=== PATIENT | female | born 1970 | race African-American/Black ===

== ENCOUNTER 2019-10-29 13:19 | Inpatient (IN) | payer BC ==
[~2019-10-29] VITALS: Ht 172.7 cm; Wt 100.9 kg
[2019-10-29] MEDS ORDERED: IV NORMAL SALINE 1000ML BAG 1,000 ML IV SCH (13:31)
--- NOTE | 2019-10-29 13:40 | PHYS DOC ---
General Adult EDM: Chief Complaint: CHEST PAIN HPI: HPI: Patient is a 49 year old female who presents with left-sided chest pain that started today. She describes the pain as sharp and nonradiating she is also reporting some shortness of air and dizziness. Patient appears anxious and is hyperventilating. Patient is also reporting allover pain that she attributes to her fibromyalgia that started yesterday. Patient takes gabapentin, tramado, and Effexor for her fibromyalgia but reports that it is not improving her symptoms today. Patient reports that she was outside yesterday working in the heat and her pain started after that. Patient has a history of systolic dysfunction co ngestive heart failure, high cholesterol, anxiety, GERD, anxiety, depression and insomnia. Patient takes Eliquis. She is allergic to aspirin. Patient rates her pain 10 out of 10. Review of Systems: Review of Systems: Respiratory: Denies cough. + shortness of breath. [] Cardiovascular: chest pain or denies edema. [] Musculoskeletal: Denies back pain or joint pain. Generalized pain. [] Neurologic: Dizziness. Denies headache, focal weakness or sensory changes. [] Heart Score: HEART Score for Chest Pain: HEART Score for Chest Pain Response (Comments) Value History Moderately Suspicious 1 ECG Nonspecific Repolarizatio 1 Age >45 - < 65 1 Risk Factors >3 Risk Factors or Hx CAD 2 Troponin < Normal Limit 0 Total 5 Risk Factors: Risk Factors: DM, Current or recent (<one month) smoker, HTN, HLP, family history of CAD, obesity. Risk Scores: Score 0 - 3: 2.5% MACE over next 6 weeks - Discharge Home Score 4 - 6: 20.3% MACE over next 6 weeks - Admit for Clinical Observation Score 7 - 10: 72.7% MACE over next 6 weeks - Early Invasive Strategies Physical Exam: PE: Constitutional: Well developed, well nourished, no acute distress, non-toxic appearance. [] HENT: Normocephalic, atraumatic, bilateral external ears normal, oropharynx moist, no oral exudates, nose normal. [] Eyes: PERRLA, EOMI, conjunctiva normal, no discharge. [] Neck: Normal range of motion, no tenderness, supple, no stridor. [] Cardiovascular:Heart rate regular rhythm, no murmur [] Lungs & Thorax: Bilateral breath sounds clear to auscultation [] Abdomen: Bowel sounds normal, soft, no tenderness, no masses, no pulsatile masses. [] Skin: Warm, dry, no erythema, no rash. [] Back: No tenderness, no CVA tenderness. [] Extremities: No tenderness, no cyanosis, no clubbing, ROM intact, no edema. [] Neurologic: Alert and oriented X 3, normal motor function, normal sensory function, no focal deficits noted. [] Psychologic: Affect normal, judgement normal, mood normal. Normal Physical Exam [] EKG: EK and read by Dr. Lane sinus rhythm and no STEMI [] Radiology/Procedures: Radiology/Procedures: [] Impression: [facility] [address] [place] [address] IMAGING REPORT Signed PATIENT: MARIBELL STEARNS EACCOUNT: [id number] : 1970 LOCATION: ER AGE: 49 SEX: F EXAM STATUS: REG ER ORD. PHYSICIAN: MARIA ISABEL CONNORS APRN REASON: chest pain PROCEDURE: PORTABLE CHEST 1V PORTABLE CHEST 1V 10/29/2019 1:31 PM INDICATION: Chest pain COMPARISON: None available TECHNIQUE: Portable frontal view of the chest is provided. FINDINGS: The cardiomediastinal silhouette is within normal limits. Lungs are clear. There are no significant pleural effusions. There is no pulmonary vascular congestion. No pneumothorax. No suspicious osseous abnormality. IMPRESSION: There is no acute cardiopulmonary process. Electronically signed by: Maryann Rodrigues MD (10/29/2019 3:04 PM) [facility] DICTATED and SIGNED BY: MARYANN RODRIGUES MD DATE: 10/29/19 1504 Course & Med Decision Making: Course & Med Decision Making Pertinent Labs and Imaging studies reviewed. (See chart for details) Alert and oriented. Patient is very anxious. See HPI. Lungs are clear to auscultation all lobes. Vital signs are within normal limits. Patient is given 50mcg fentanyl of which she states is not helping. I have ordered 75mcg of fentanyl at this time. Patient states she did take a nitro before coming to the hospital. No extremity edema. Patient's pain is uncontrolled. Patient to be admitted to the hospital. I have spoken to Dr. Ortiz for admission. [] Elieon Disclaimer: Prisca Disclaimer: This electronic medical record was generated, in whole or in part, using a voice recognition dictation system. Departure Departure Impression: Primary Impression: Chest pain Qualified Codes: R07.9 - Chest pain, unspecified Disposition: ADMITTED INPATIENT Admitting Physician: SHAHRIAR Condition: STABLE Justicifation of Admission Dx: Justifications for Admission: Justification of Admission Dx: Yes Comments: Chest pain MARIA ISABEL CONNORS MITERING MACHINE OPERATOR Oct 29, 2019 13:40
[2019-10-29] MEDS ORDERED: fentaNYL PF VIAL 100 MCG/2 ML VIAL IVP ONE ×2 (13:45→15:45)
[2019-10-29 14:25] LABS: BASO % 1 % (0-3); EOS # 0.1 x10^3/uL (0.0-0.7); EOS % 1 % (0-3); HEMOGLOBIN 13.4 g/dL (12.0-15.5); LYMPH # 2.8 x10^3/uL (1.0-4.8); LYMPH % 53 % (24-48); MEAN CORPUSCULAR HEMOGLOBIN 28 pg (25-35); MEAN CORPUSCULAR HGB CONC 34 g/dL (31-37); MEAN CORPUSCULAR VOLUME 84 fL (79-100); MONO # 0.3 x10^3/uL (0.0-1.1); MONO % 5 % (0-9); NEUT # 2.1 x10^3/uL (1.8-7.7); NEUT % 41 % (31-73); PLATELET COUNT 256 x10^3/uL (140-400); RED BLOOD COUNT 4.75 x10^6/uL (3.50-5.40); WHITE BLOOD COUNT 5.2 x10^3/uL (4.0-11.0)
[2019-10-29 14:44] LABS: PROTHROMBIN TIME PATIENT 13.6 SEC (11.7-14.0)
--- NOTE | 2019-10-29 15:07 | RAD ---
PORTABLE CHEST 1V 10/29/2019 1:31 PM INDICATION: Chest pain COMPARISON: None available TECHNIQUE: Portable frontal view of the chest is provided. FINDINGS: The cardiomediastinal silhouette is within normal limits. Lungs are clear. There are no significant pleural effusions. There is no pulmonary vascular congestion. No pneumothorax. No suspicious osseous abnormality. IMPRESSION: There is no acute cardiopulmonary process. Electronically signed by: Matilda Waldron MD (10/29/2019 3:04 PM) [facility]
[2019-10-29] MEDS ORDERED: NITROGLYCERIN SUBLINGUAL 0.4 MG BOTTLE OF 25. SL PRN (15:15)
[2019-10-29 16:13] LABS: BILIRUBIN,URINE NEGATIVE (NEG); CLARITY,URINE CLEAR; COLOR,URINE YELLOW; NITRITE,URINE NEGATIVE (NEG); PH,URINE 8.5 (<5.0-8.0); PROTEIN,URINE 30 mg/dL (NEG-TRACE)
[2019-10-29 16:19] LABS: BARBITURATES NEG (NEG); BENZODIAZEPINES POS (NEG); CANNABINOIDS POS (NEG); COCAINE NEG (NEG); METHADONE NEG (NEG); OPIATES NEG (NEG); PHENCYCLIDINE NEG (NEG)
[2019-10-29 16:20] LABS: BACTERIA,URINE MANY /HPF (0-FEW); SQUAMOUS EPITHELIAL CELL,UR MANY /LPF
[2019-10-29 16:21] LABS: AMPHETAMINE/METHAMPHETAMINE NEG (NEG); RBC,URINE OCC /HPF (0-2)
[2019-10-29 16:36] LABS: CALCIUM 8.8 mg/dL (8.5-10.1); GFR 71.6; POTASSIUM 3.4 mmol/L (3.5-5.1)
[2019-10-29 16:40] LABS: ALBUMIN 3.8 g/dL (3.4-5.0); ALBUMIN/GLOBULIN RATIO 1.1 (1.0-1.7); TOTAL BILIRUBIN 1.4 mg/dL (0.2-1.0); TOTAL PROTEIN 7.2 g/dL (6.4-8.2)
[2019-10-29] MEDS ORDERED: ONDANSETRON PF 4 MG/2 ML VIAL. IV PRN (17:15)
[2019-10-29] MEDS: fentaNYL PF VIAL 100 MCG/2 ML VIAL IV PRN ×2 (18:29→20:00)
[2019-10-29] MEDS ORDERED: ATOR10TA60 PO ×2 (20:12→22:05)
[2019-10-29] MEDS ORDERED: SUVO20TA PO ×2 (20:12→22:05)
[2019-10-29] MEDS ORDERED: APIX5TAB PO ×2 (20:16→22:06)
[2019-10-29] MEDS ORDERED: ALBU2.5V8 INH (20:16)
[2019-10-29] MEDS ORDERED: FURO-68 PO (20:16)
[2019-10-29] MEDS ORDERED: ISOS20TA2 PO (20:16)
[2019-10-29] MEDS ORDERED: VORT20TA PO ×2 (20:16→22:06)
[2019-10-29] MEDS ORDERED: LEVO5TAB29 PO (20:16)
[2019-10-29] MEDS ORDERED: ALPR0.5T PO (20:16)
--- NOTE | 2019-10-29 21:00 | NUR ---
Pt was admitted to the unit with c/o chest and generalized pain. Pt states having fibromyalgia but hasn't had an "event" in several months. Pt is from [place], but has been here visiting her friend since early october r/t her friends deteriorating health condition. Pt is A/Ox4, on RA, up adlib and tolerating well, VSS, SR on telemetry. Pt was seen at bedside by Dr. Ortiz, rating her generalized pain 10/10, fentanyl administered, H&P completed, home meds restarted. Call light within reach, bed in low/locked position, will continue to monitor for status changes.
--- NOTE | 2019-10-29 21:25 | PDOC1 ---
History and Physical Date of Admission Date of Admission DATE: 10/29/19 TIME: 21:05 Identification/Chief Complaint Chief Complaint chest pain Source Source: Chart review, Patient History of Present Illness History of Present Illness 49 year old black female hx of fibromyalgia, ? systolic CHF, hx dvt on AC, asthma, MDD, anxiety, PTSD, gastric sleeve, tubal ligation, tonsilectomy, knee sx, hx of pancreatitis who presents with 1 day of of substernal chest pain traveling to jaw and up neck. no relief with NTG. denies hx of reflux or associated chest pain while eating. no recent heavy lifting. hx of stress test, unclear when. hx of cardiac cath November 2018 that was negative per patient. no family hx of premature cad. denies drugs etoh or smoking. no changes on EKG in ED. initial trop x2 negative. HEART score of 5 on admission. patient allergic to asa chest xray negative admitted for ACS rule out Past Medical History Past Medical History hx of fibromyalgia, ? systolic CHF, hx dvt on AC, asthma, MDD, anxiety, PTSD, hx of pancreatitis Past Surgical History Past Surgical History gastric sleeve, tubal ligation, tonsilectomy, knee sx, Family History Family History reviewed and denies Social History Smoke: No ALCOHOL: none Drugs: None Current Problem List Problem List Problems Medical Problems: (1) Chest pain Status: Acute Current Medications Current Medications Current Medications Sodium Chloride 1,000 ml @ 1,000 mls/hr Q1H IV Last administered on 10/29/19at 14:32; Start 10/29/19 at 13:31; Stop 10/29/19 at 14:30; Status DC Fentanyl Citrate (Fentanyl 2ml Vial) 50 mcg 1X ONCE IVP Last administered on 10/29/19at 14:31; Start 10/29/19 at 13:45; Stop 10/29/19 at 13:50; Status DC Nitroglycerin (Nitrostat) 0.4 mg PRN Q5MIN PRN SL CHEST PAIN Last administered on 10/29/19at 15:24; Start 10/29/19 at 15:15 Fentanyl Citrate (Fentanyl 2ml Vial) 75 mcg 1X ONCE IVP Last administered on 10/29/19at 15:45; Start 10/29/19 at 15:45; Stop 10/29/19 at 15:46; Status DC Ondansetron HCl (Zofran) 4 mg PRN Q8HRS PRN IV NAUSEA/VOMITING; Start 10/29/19 at 17:15; Stop 10/30/19 at 17:14 Fentanyl Citrate (Fentanyl 2ml Vial) 50 mcg PRN Q1HR PRN IV PAIN Last administered on 10/29/19at 20:00; Start 10/29/19 at 17:15; Stop 10/30/19 at 17:14 Active Scripts Active Reported Isosorbide Mononitrate 20 Mg Tablet 60 Mg PO DAILY Xyzal (Levocetirizine Dihydrochloride) 5 Mg Tablet 5 Mg PO DAILY Proair Hfa (Albuterol Sulfate) 8.5 Gm Hfa.aer.ad 2 Puff INH PRN Q6HRS PRN Xanax (Alprazolam) 0.5 Mg Tablet 0.5 Mg PO TID Lasix (Furosemide) 40 Mg Tablet 40 Mg PO DAILY Trintellix (Vortioxetine) 20 Mg Tablet 20 Mg PO DAILY Eliquis (Apixaban) 5 Mg Tablet 5 Mg PO BID Belsomra (Suvorexant) 20 Mg Tablet 20 Mg PO HS Atorvastatin Calcium 10 Mg Tablet 10 Mg PO HS Allergies Allergies: Coded Allergies: latex (Verified Allergy, Severe, throat closes, 10/29/19) shellfish derived (Verified Allergy, Severe, THROAT CLOSES, 10/29/19) acetaminophen (Verified Allergy, Intermediate, dizziness, 10/29/19) aspirin (Verified Allergy, Intermediate, hives, 10/29/19) oxycodone (Verified Allergy, Intermediate, dizziness, 10/29/19) Vitals Vitals Vital Signs Date Time Temp Pulse Resp B/P (MAP) Pulse Ox O2 Delivery O2 Flow Rate FiO2 10/29/19 16:02 74 114/70 (85) 96 Room Air 10/29/19 13:48 97.8 22 97.8 Labs Labs Laboratory Tests Test 10/29/19 14:15 10/29/19 15:55 10/29/19 16:00 10/29/19 20:00 White Blood Count 5.2 x10^3/uL (4.0-11.0) Red Blood Count 4.75 x10^6/uL (3.50-5.40) Hemoglobin 13.4 g/dL (12.0-15.5) Hematocrit 40.0 % (36.0-47.0) Mean Corpuscular Volume 84 fL (79-100) Mean Corpuscular Hemoglobin 28 pg (25-35) Mean Corpuscular Hemoglobin Concent 34 g/dL (31-37) Red Cell Distribution Width 14.0 % (11.5-14.5) Platelet Count 256 x10^3/uL (140-400) Neutrophils (%) (Auto) 41 % (31-73) Lymphocytes (%) (Auto) 53 % (24-48) Monocytes (%) (Auto) 5 % (0-9) Eosinophils (%) (Auto) 1 % (0-3) Basophils (%) (Auto) 1 % (0-3) Neutrophils # (Auto) 2.1 x10^3/uL (1.8-7.7) Lymphocytes # (Auto) 2.8 x10^3/uL (1.0-4.8) Monocytes # (Auto) 0.3 x10^3/uL (0.0-1.1) Eosinophils # (Auto) 0.1 x10^3/uL (0.0-0.7) Basophils # (Auto) 0.0 x10^3/uL (0.0-0.2) Prothrombin Time 13.6 SEC (11.7-14.0) Prothromb Time International Ratio 1.1 (0.8-1.1) Urine Collection Type Unknown Urine Color Yellow Urine Clarity Clear Urine pH 8.5 (<5.0-8.0) Urine Specific Wheaton 1.015 (1.000-1.030) Urine Protein 30 mg/dL (NEG-TRACE) Urine Glucose (UA) Negative mg/dL (NEG) Urine Ketones (Stick) Trace mg/dL (NEG) Urine Blood Negative (NEG) Urine Nitrite Negative (NEG) Urine Bilirubin Negative (NEG) Urine Urobilinogen Dipstick 1.0 mg/dL (0.2 mg/dL) Urine Leukocyte Esterase Moderate (NEG) Urine RBC Occ /HPF (0-2) Urine WBC 5-10 /HPF (0-4) Urine Squamous Epithelial Cells Many /LPF Urine Bacteria Many /HPF (0-FEW) Urine Opiates Screen Neg (NEG) Urine Methadone Screen Neg (NEG) Urine Barbiturates Neg (NEG) Urine Phencyclidine Screen Neg (NEG) Urine Amphetamine/Methamphetamine Neg (NEG) Urine Benzodiazepines Screen Pos (NEG) Urine Cocaine Screen Neg (NEG) Urine Cannabinoids Screen Pos (NEG) Urine Ethyl Alcohol Neg (NEG) Sodium Level 141 mmol/L (136-145) Potassium Level 3.4 mmol/L (3.5-5.1) Chloride Level 102 mmol/L (98-107) Carbon Dioxide Level 28 mmol/L (21-32) Anion Gap 11 (6-14) Blood Urea Nitrogen 13 mg/dL (7-20) Creatinine 1.0 mg/dL (0.6-1.0) Estimated GFR (Cockcroft-Gault) 71.6 BUN/Creatinine Ratio 13 (6-20) Glucose Level 88 mg/dL (70-99) Calcium Level 8.8 mg/dL (8.5-10.1) Total Bilirubin 1.4 mg/dL (0.2-1.0) Aspartate Amino Transf (AST/SGOT) 38 U/L (15-37) Alanine Aminotransferase (ALT/SGPT) 87 U/L (14-59) Alkaline Phosphatase 141 U/L (46-116) Troponin I Quantitative < 0.017 ng/mL (0.000-0.055) < 0.017 ng/mL (0.000-0.055) UR-Vke-J-Type Natriuretic Peptide 40 pg/mL (0-124) Total Protein 7.2 g/dL (6.4-8.2) Albumin 3.8 g/dL (3.4-5.0) Albumin/Globulin Ratio 1.1 (1.0-1.7) Lipase 81 U/L (73-393) Laboratory Tests Test 10/29/19 14:15 10/29/19 15:55 10/29/19 16:00 10/29/19 20:00 White Blood Count 5.2 x10^3/uL (4.0-11.0) Red Blood Count 4.75 x10^6/uL (3.50-5.40) Hemoglobin 13.4 g/dL (12.0-15.5) Hematocrit 40.0 % (36.0-47.0) Mean Corpuscular Volume 84 fL (79-100) Mean Corpuscular Hemoglobin 28 pg (25-35) Mean Corpuscular Hemoglobin Concent 34 g/dL (31-37) Red Cell Distribution Width 14.0 % (11.5-14.5) Platelet Count 256 x10^3/uL (140-400) Neutrophils (%) (Auto) 41 % (31-73) Lymphocytes (%) (Auto) 53 % (24-48) Monocytes (%) (Auto) 5 % (0-9) Eosinophils (%) (Auto) 1 % (0-3) Basophils (%) (Auto) 1 % (0-3) Neutrophils # (Auto) 2.1 x10^3/uL (1.8-7.7) Lymphocytes # (Auto) 2.8 x10^3/uL (1.0-4.8) Monocytes # (Auto) 0.3 x10^3/uL (0.0-1.1) Eosinophils # (Auto) 0.1 x10^3/uL (0.0-0.7) Basophils # (Auto) 0.0 x10^3/uL (0.0-0.2) Prothrombin Time 13.6 SEC (11.7-14.0) Prothromb Time International Ratio 1.1 (0.8-1.1) Urine Collection Type Unknown Urine Color Yellow Urine Clarity Clear Urine pH 8.5 (<5.0-8.0) Urine Specific [place]aton 1.015 (1.000-1.030) Urine Protein 30 mg/dL (NEG-TRACE) Urine Glucose (UA) Negative mg/dL (NEG) Urine Ketones (Stick) Trace mg/dL (NEG) Urine Blood Negative (NEG) Urine Nitrite Negative (NEG) Urine Bilirubin Negative (NEG) Urine Urobilinogen Dipstick 1.0 mg/dL (0.2 mg/dL) Urine Leukocyte Esterase Moderate (NEG) Urine RBC Occ /HPF (0-2) Urine WBC 5-10 /HPF (0-4) Urine Squamous Epithelial Cells Many /LPF Urine Bacteria Many /HPF (0-FEW) Urine Opiates Screen Neg (NEG) Urine Methadone Screen Neg (NEG) Urine Barbiturates Neg (NEG) Urine Phencyclidine Screen Neg (NEG) Urine Amphetamine/Methamphetamine Neg (NEG) Urine Benzodiazepines Screen Pos (NEG) Urine Cocaine Screen Neg (NEG) Urine Cannabinoids Screen Pos (NEG) Urine Ethyl Alcohol Neg (NEG) Sodium Level 141 mmol/L (136-145) Potassium Level 3.4 mmol/L (3.5-5.1) Chloride Level 102 mmol/L (98-107) Carbon Dioxide Level 28 mmol/L (21-32) Anion Gap 11 (6-14) Blood Urea Nitrogen 13 mg/dL (7-20) Creatinine 1.0 mg/dL (0.6-1.0) Estimated GFR (Cockcroft-Gault) 71.6 BUN/Creatinine Ratio 13 (6-20) Glucose Level 88 mg/dL (70-99) Calcium Level 8.8 mg/dL (8.5-10.1) Total Bilirubin 1.4 mg/dL (0.2-1.0) Aspartate Amino Transf (AST/SGOT) 38 U/L (15-37) Alanine Aminotransferase (ALT/SGPT) 87 U/L (14-59) Alkaline Phosphatase 141 U/L (46-116) Troponin I Quantitative < 0.017 ng/mL (0.000-0.055) < 0.017 ng/mL (0.000-0.055) QY-Ioh-P-Type Natriuretic Peptide 40 pg/mL (0-124) Total Protein 7.2 g/dL (6.4-8.2) Albumin 3.8 g/dL (3.4-5.0) Albumin/Globulin Ratio 1.1 (1.0-1.7) Lipase 81 U/L (73-393) VTE Prophylaxis Ordered VTE Prophylaxis Devices: Yes VTE Pharmacological Prophylaxi: Yes Assessment/Plan Assessment/Plan ASSESSMENT Chest Pain rule out ACS Fibromyalgia hx of DVT on oral AC Asthma ? hx of CHF Depression, anxiety PLAN - admit to tele bed - trop x 2 negative. check 3rd trop - NPO past midnight - cards consult - allergic to ASA - continue oral AC - restart home psych meds - check lipids, tsh, a1c - defer further testing to cards. hx of cath last year per patient that was negative - dvt ppx: oral ac - full code Justicifation of Admission Dx: Justifications for Admission: Justification of Admission Dx: Yes AMBER FERNÁNDEZ MD Oct 29, 2019 21:25
[2019-10-29 21:53] LABS: CHOLESTEROL/HDL RATIO 2.5
[2019-10-29] MEDS: APIXABAN 5 MG TABLET. PO SCH (22:04)
[2019-10-29] MEDS: ALPRAZolam 0.5 MG TABLET PO SCH (22:04)
[2019-10-29] MEDS: ISOSORBIDE MONONITRATE ER 30 MG TAB.ER.24H PO SCH (22:04)
[2019-10-29] MEDS: ATORVASTATIN CALCIUM 10 MG TABLET. PO SCH (22:04)
[2019-10-29 23:00] VITALS: BP 140/80
[2019-10-29] MEDS: ZOLPIDEM 5 MG TABLET. PO PRN (23:34)
[2019-10-30 03:00] VITALS: BP 133/70
[2019-10-30] MEDS: fentaNYL PF VIAL 100 MCG/2 ML VIAL IV PRN (04:41)
[2019-10-30 07:00] VITALS: BP 112/66
[2019-10-30] MEDS ORDERED: ISOSORBIDE MONONITRATE ER 30 MG TAB.ER.24H PO SCH (09:00)
[2019-10-30] MEDS: APIXABAN 5 MG TABLET. PO SCH ×2 (09:15→21:52)
[2019-10-30] MEDS: ISOSORBIDE MONONITRATE ER 30 MG TAB.ER.24H PO SCH (09:15)
[2019-10-30] MEDS: FUROSEMIDE 40 MG TABLET. PO SCH (09:15)
[2019-10-30] MEDS: ALPRAZolam 0.5 MG TABLET PO SCH ×3 (09:15→21:53)
[2019-10-30] MEDS: CETIRIZINE HCL 10 MG TABLET. PO SCH (09:16)
[2019-10-30] MEDS ORDERED: SPIR25TA5 PO (09:22)
--- NOTE | 2019-10-30 09:58 | PDOC ---
PROGRESS NOTES History of Present Illness History of Present Illness VTE Prophylaxis Ordered VTE Prophylaxis Devices: Yes VTE Pharmacological Prophylaxi: Yes Assessment/Plan Assessment/Plan ASSESSMENT Chest Pain rule out ACS Fibromyalgia hx of DVT on oral AC Asthma ? hx of CHF Depression, anxiety [facility] 10/2018 in [place] and will obtain records, no CAD but ruled as vasopasm PLAN TTE 10/29 PLAN - admit to tele bed - trop x 2 negative. check 3rd trop - NPO PENDING CV CONSULT - cards consult - allergic to ASA - continue oral AC - restart home psych meds - check lipids, tsh, a1c - defer further testing to cards. hx of cath last year per patient that was negative - dvt ppx: oral ac - full code D/W RN Justicifation of Admission Dx: Justicifation of Admission Dx: Justifications for Admission: Justification of Admission Dx: Yes Vitals Vitals Vital Signs Date Time Temp Pulse Resp B/P (MAP) Pulse Ox O2 Delivery O2 Flow Rate FiO2 10/30/19 09:15 84 112/66 10/30/19 07:00 98.0 22 97 Room Air 98.0 Physical Exam Physical Exam Constitutional: Well developed, well nourished, no acute distress, non-toxic appearance. [] HENT: Normocephalic, atraumatic, bilateral external ears normal, oropharynx moist, no oral exudates, nose normal. [] Eyes: PERRLA, EOMI, conjunctiva normal, no discharge. [] Neck: Normal range of motion, no tenderness, supple, no stridor. [] Cardiovascular:Heart rate regular rhythm, no murmur [] Lungs & Thorax: Bilateral breath sounds clear to auscultation [] Abdomen: Bowel sounds normal, soft, no tenderness, no masses, no pulsatile masses. [] Skin: Warm, dry, no erythema, no rash. [] Back: No tenderness, no CVA tenderness. [] Extremities: No tenderness, no cyanosis, no clubbing, ROM intact, no edema. [] Neurologic: Alert and oriented X 3, normal motor function, normal sensory function, no focal deficits noted. [] Psychologic: Affect normal, judgement normal, mood normal. General: Alert, Oriented X3, Cooperative, No acute distress Heart: Normal S1 Lungs: Clear Abdomen: Normal bowel sounds, Soft, No hepatosplenomegaly Extremities: No cyanosis, No edema Skin: No significant lesion Labs LABS PORTABLE CHEST 1V 10/29/2019 1:31 PM INDICATION: Chest pain COMPARISON: None available TECHNIQUE: Portable frontal view of the chest is provided. FINDINGS: The cardiomediastinal silhouette is within normal limits. Lungs are clear. There are no significant pleural effusions. There is no pulmonary vascular congestion. No pneumothorax. No suspicious osseous abnormality. IMPRESSION: There is no acute cardiopulmonary process. Electronically signed by: Maryann Waldron MD (10/29/2019 3:04 PM) [facility] DICTATED and SIGNED BY: MARYANN WALDRON MD Laboratory Tests Test 10/29/19 14:15 10/29/19 15:55 10/29/19 16:00 10/29/19 20:00 White Blood Count 5.2 x10^3/uL (4.0-11.0) Red Blood Count 4.75 x10^6/uL (3.50-5.40) Hemoglobin 13.4 g/dL (12.0-15.5) Hematocrit 40.0 % (36.0-47.0) Mean Corpuscular Volume 84 fL (79-100) Mean Corpuscular Hemoglobin 28 pg (25-35) Mean Corpuscular Hemoglobin Concent 34 g/dL (31-37) Red Cell Distribution Width 14.0 % (11.5-14.5) Platelet Count 256 x10^3/uL (140-400) Neutrophils (%) (Auto) 41 % (31-73) Lymphocytes (%) (Auto) 53 % (24-48) Monocytes (%) (Auto) 5 % (0-9) Eosinophils (%) (Auto) 1 % (0-3) Basophils (%) (Auto) 1 % (0-3) Neutrophils # (Auto) 2.1 x10^3/uL (1.8-7.7) Lymphocytes # (Auto) 2.8 x10^3/uL (1.0-4.8) Monocytes # (Auto) 0.3 x10^3/uL (0.0-1.1) Eosinophils # (Auto) 0.1 x10^3/uL (0.0-0.7) Basophils # (Auto) 0.0 x10^3/uL (0.0-0.2) Prothrombin Time 13.6 SEC (11.7-14.0) Prothromb Time International Ratio 1.1 (0.8-1.1) Urine Collection Type Unknown Urine Color Yellow Urine Clarity Clear Urine pH 8.5 (<5.0-8.0) Urine Specific [place] 1.015 (1.000-1.030) Urine Protein 30 mg/dL (NEG-TRACE) Urine Glucose (UA) Negative mg/dL (NEG) Urine Ketones (Stick) Trace mg/dL (NEG) Urine Blood Negative (NEG) Urine Nitrite Negative (NEG) Urine Bilirubin Negative (NEG) Urine Urobilinogen Dipstick 1.0 mg/dL (0.2 mg/dL) Urine Leukocyte Esterase Moderate (NEG) Urine RBC Occ /HPF (0-2) Urine WBC 5-10 /HPF (0-4) Urine Squamous Epithelial Cells Many /LPF Urine Bacteria Many /HPF (0-FEW) Urine Opiates Screen Neg (NEG) Urine Methadone Screen Neg (NEG) Urine Barbiturates Neg (NEG) Urine Phencyclidine Screen Neg (NEG) Urine Amphetamine/Methamphetamine Neg (NEG) Urine Benzodiazepines Screen Pos (NEG) Urine Cocaine Screen Neg (NEG) Urine Cannabinoids Screen Pos (NEG) Urine Ethyl Alcohol Neg (NEG) Sodium Level 141 mmol/L (136-145) Potassium Level 3.4 mmol/L (3.5-5.1) Chloride Level 102 mmol/L (98-107) Carbon Dioxide Level 28 mmol/L (21-32) Anion Gap 11 (6-14) Blood Urea Nitrogen 13 mg/dL (7-20) Creatinine 1.0 mg/dL (0.6-1.0) Estimated GFR (Cockcroft-Gault) 71.6 BUN/Creatinine Ratio 13 (6-20) Glucose Level 88 mg/dL (70-99) Calcium Level 8.8 mg/dL (8.5-10.1) Total Bilirubin 1.4 mg/dL (0.2-1.0) Aspartate Amino Transf (AST/SGOT) 38 U/L (15-37) Alanine Aminotransferase (ALT/SGPT) 87 U/L (14-59) Alkaline Phosphatase 141 U/L (46-116) Troponin I Quantitative < 0.017 ng/mL (0.000-0.055) < 0.017 ng/mL (0.000-0.055) [id number]-Type Natriuretic Peptide 40 pg/mL (0-124) Total Protein 7.2 g/dL (6.4-8.2) Albumin 3.8 g/dL (3.4-5.0) Albumin/Globulin Ratio 1.1 (1.0-1.7) Lipase 81 U/L (73-393) Triglycerides Level 76 mg/dL (0-150) Cholesterol Level 145 mg/dL (0-200) LDL Cholesterol, Calculated 72 mg/dL (0-100) VLDL Cholesterol, Calculated 15 mg/dL (0-40) Non-HDL Cholesterol Calculated 87 mg/dL (0-129) HDL Cholesterol 58 mg/dL (40-60) Cholesterol/HDL Ratio 2.5 Thyroid Stimulating Hormone (TSH) 1.560 uIU/mL (0.358-3.74) Test 10/30/19 02:38 Troponin I Quantitative < 0.017 ng/mL (0.000-0.055) Assessment and Plan Assessmemt and Plan Problems Medical Problems: (1) Chest pain Status: Acute Comment Review of Relevant I have reviewed the following items shantelle (where applicable) has been applied. Labs Laboratory Tests Test 10/29/19 14:15 10/29/19 15:55 10/29/19 16:00 10/29/19 20:00 White Blood Count 5.2 x10^3/uL (4.0-11.0) Red Blood Count 4.75 x10^6/uL (3.50-5.40) Hemoglobin 13.4 g/dL (12.0-15.5) Hematocrit 40.0 % (36.0-47.0) Mean Corpuscular Volume 84 fL (79-100) Mean Corpuscular Hemoglobin 28 pg (25-35) Mean Corpuscular Hemoglobin Concent 34 g/dL (31-37) Red Cell Distribution Width 14.0 % (11.5-14.5) Platelet Count 256 x10^3/uL (140-400) Neutrophils (%) (Auto) 41 % (31-73) Lymphocytes (%) (Auto) 53 % (24-48) Monocytes (%) (Auto) 5 % (0-9) Eosinophils (%) (Auto) 1 % (0-3) Basophils (%) (Auto) 1 % (0-3) Neutrophils # (Auto) 2.1 x10^3/uL (1.8-7.7) Lymphocytes # (Auto) 2.8 x10^3/uL (1.0-4.8) Monocytes # (Auto) 0.3 x10^3/uL (0.0-1.1) Eosinophils # (Auto) 0.1 x10^3/uL (0.0-0.7) Basophils # (Auto) 0.0 x10^3/uL (0.0-0.2) Prothrombin Time 13.6 SEC (11.7-14.0) Prothromb Time International Ratio 1.1 (0.8-1.1) Urine Collection Type Unknown Urine Color Yellow Urine Clarity Clear Urine pH 8.5 (<5.0-8.0) Urine Specific [place] 1.015 (1.000-1.030) Urine Protein 30 mg/dL (NEG-TRACE) Urine Glucose (UA) Negative mg/dL (NEG) Urine Ketones (Stick) Trace mg/dL (NEG) Urine Blood Negative (NEG) Urine Nitrite Negative (NEG) Urine Bilirubin Negative (NEG) Urine Urobilinogen Dipstick 1.0 mg/dL (0.2 mg/dL) Urine Leukocyte Esterase Moderate (NEG) Urine RBC Occ /HPF (0-2) Urine WBC 5-10 /HPF (0-4) Urine Squamous Epithelial Cells Many /LPF Urine Bacteria Many /HPF (0-FEW) Urine Opiates Screen Neg (NEG) Urine Methadone Screen Neg (NEG) Urine Barbiturates Neg (NEG) Urine Phencyclidine Screen Neg (NEG) Urine Amphetamine/Methamphetamine Neg (NEG) Urine Benzodiazepines Screen Pos (NEG) Urine Cocaine Screen Neg (NEG) Urine Cannabinoids Screen Pos (NEG) Urine Ethyl Alcohol Neg (NEG) Sodium Level 141 mmol/L (136-145) Potassium Level 3.4 mmol/L (3.5-5.1) Chloride Level 102 mmol/L (98-107) Carbon Dioxide Level 28 mmol/L (21-32) Anion Gap 11 (6-14) Blood Urea Nitrogen 13 mg/dL (7-20) Creatinine 1.0 mg/dL (0.6-1.0) Estimated GFR (Cockcroft-Gault) 71.6 BUN/Creatinine Ratio 13 (6-20) Glucose Level 88 mg/dL (70-99) Calcium Level 8.8 mg/dL (8.5-10.1) Total Bilirubin 1.4 mg/dL (0.2-1.0) Aspartate Amino Transf (AST/SGOT) 38 U/L (15-37) Alanine Aminotransferase (ALT/SGPT) 87 U/L (14-59) Alkaline Phosphatase 141 U/L (46-116) Troponin I Quantitative < 0.017 ng/mL (0.000-0.055) < 0.017 ng/mL (0.000-0.055) EQ-Vgi-I-Type Natriuretic Peptide 40 pg/mL (0-124) Total Protein 7.2 g/dL (6.4-8.2) Albumin 3.8 g/dL (3.4-5.0) Albumin/Globulin Ratio 1.1 (1.0-1.7) Lipase 81 U/L (73-393) Triglycerides Level 76 mg/dL (0-150) Cholesterol Level 145 mg/dL (0-200) LDL Cholesterol, Calculated 72 mg/dL (0-100) VLDL Cholesterol, Calculated 15 mg/dL (0-40) Non-HDL Cholesterol Calculated 87 mg/dL (0-129) HDL Cholesterol 58 mg/dL (40-60) Cholesterol/HDL Ratio 2.5 Thyroid Stimulating Hormone (TSH) 1.560 uIU/mL (0.358-3.74) Test 10/30/19 02:38 Troponin I Quantitative < 0.017 ng/mL (0.000-0.055) Laboratory Tests Test 10/29/19 14:15 10/29/19 15:55 10/29/19 16:00 10/29/19 20:00 White Blood Count 5.2 x10^3/uL (4.0-11.0) Red Blood Count 4.75 x10^6/uL (3.50-5.40) Hemoglobin 13.4 g/dL (12.0-15.5) Hematocrit 40.0 % (36.0-47.0) Mean Corpuscular Volume 84 fL (79-100) Mean Corpuscular Hemoglobin 28 pg (25-35) Mean Corpuscular Hemoglobin Concent 34 g/dL (31-37) Red Cell Distribution Width 14.0 % (11.5-14.5) Platelet Count 256 x10^3/uL (140-400) Neutrophils (%) (Auto) 41 % (31-73) Lymphocytes (%) (Auto) 53 % (24-48) Monocytes (%) (Auto) 5 % (0-9) Eosinophils (%) (Auto) 1 % (0-3) Basophils (%) (Auto) 1 % (0-3) Neutrophils # (Auto) 2.1 x10^3/uL (1.8-7.7) Lymphocytes # (Auto) 2.8 x10^3/uL (1.0-4.8) Monocytes # (Auto) 0.3 x10^3/uL (0.0-1.1) Eosinophils # (Auto) 0.1 x10^3/uL (0.0-0.7) Basophils # (Auto) 0.0 x10^3/uL (0.0-0.2) Prothrombin Time 13.6 SEC (11.7-14.0) Prothromb Time International Ratio 1.1 (0.8-1.1) Urine Collection Type Unknown Urine Color Yellow Urine Clarity Clear Urine pH 8.5 (<5.0-8.0) Urine Specific [place] 1.015 (1.000-1.030) Urine Protein 30 mg/dL (NEG-TRACE) Urine Glucose (UA) Negative mg/dL (NEG) Urine Ketones (Stick) Trace mg/dL (NEG) Urine Blood Negative (NEG) Urine Nitrite Negative (NEG) Urine Bilirubin Negative (NEG) Urine Urobilinogen Dipstick 1.0 mg/dL (0.2 mg/dL) Urine Leukocyte Esterase Moderate (NEG) Urine RBC Occ /HPF (0-2) Urine WBC 5-10 /HPF (0-4) Urine Squamous Epithelial Cells Many /LPF Urine Bacteria Many /HPF (0-FEW) Urine Opiates Screen Neg (NEG) Urine Methadone Screen Neg (NEG) Urine Barbiturates Neg (NEG) Urine Phencyclidine Screen Neg (NEG) Urine Amphetamine/Methamphetamine Neg (NEG) Urine Benzodiazepines Screen Pos (NEG) Urine Cocaine Screen Neg (NEG) Urine Cannabinoids Screen Pos (NEG) Urine Ethyl Alcohol Neg (NEG) Sodium Level 141 mmol/L (136-145) Potassium Level 3.4 mmol/L (3.5-5.1) Chloride Level 102 mmol/L (98-107) Carbon Dioxide Level 28 mmol/L (21-32) Anion Gap 11 (6-14) Blood Urea Nitrogen 13 mg/dL (7-20) Creatinine 1.0 mg/dL (0.6-1.0) Estimated GFR (Cockcroft-Gault) 71.6 BUN/Creatinine Ratio 13 (6-20) Glucose Level 88 mg/dL (70-99) Calcium Level 8.8 mg/dL (8.5-10.1) Total Bilirubin 1.4 mg/dL (0.2-1.0) Aspartate Amino Transf (AST/SGOT) 38 U/L (15-37) Alanine Aminotransferase (ALT/SGPT) 87 U/L (14-59) Alkaline Phosphatase 141 U/L (46-116) Troponin I Quantitative < 0.017 ng/mL (0.000-0.055) < 0.017 ng/mL (0.000-0.055) WW-Xhj-A-Type Natriuretic Peptide 40 pg/mL (0-124) Total Protein 7.2 g/dL (6.4-8.2) Albumin 3.8 g/dL (3.4-5.0) Albumin/Globulin Ratio 1.1 (1.0-1.7) Lipase 81 U/L (73-393) Triglycerides Level 76 mg/dL (0-150) Cholesterol Level 145 mg/dL (0-200) LDL Cholesterol, Calculated 72 mg/dL (0-100) VLDL Cholesterol, Calculated 15 mg/dL (0-40) Non-HDL Cholesterol Calculated 87 mg/dL (0-129) HDL Cholesterol 58 mg/dL (40-60) Cholesterol/HDL Ratio 2.5 Thyroid Stimulating Hormone (TSH) 1.560 uIU/mL (0.358-3.74) Test 10/30/19 02:38 Troponin I Quantitative < 0.017 ng/mL (0.000-0.055) Medications Current Medications Sodium Chloride 1,000 ml @ 1,000 mls/hr Q1H IV Last administered on 10/29/19at 14:32; Start 10/29/19 at 13:31; Stop 10/29/19 at 14:30; Status DC Fentanyl Citrate (Fentanyl 2ml Vial) 50 mcg 1X ONCE IVP Last administered on 10/29/19at 14:31; Start 10/29/19 at 13:45; Stop 10/29/19 at 13:50; Status DC Nitroglycerin (Nitrostat) 0.4 mg PRN Q5MIN PRN SL CHEST PAIN Last administered on 10/29/19at 15:24; Start 10/29/19 at 15:15 Fentanyl Citrate (Fentanyl 2ml Vial) 75 mcg 1X ONCE IVP Last administered on 10/29/19at 15:45; Start 10/29/19 at 15:45; Stop 10/29/19 at 15:46; Status DC Ondansetron HCl (Zofran) 4 mg PRN Q8HRS PRN IV NAUSEA/VOMITING Last administered on 10/30/19at 04:50; Start 10/29/19 at 17:15; Stop 10/30/19 at 17:14 Fentanyl Citrate (Fentanyl 2ml Vial) 50 mcg PRN Q1HR PRN IV PAIN Last administered on 10/30/19at 04:41; Start 10/29/19 at 17:15; Stop 10/30/19 at 17:14 Alprazolam (Xanax) 0.5 mg TID PO Last administered on 10/30/19at 09:15; Start 10/29/19 at 22:00 Apixaban (Eliquis) 5 mg BID PO Last administered on 10/30/19at 09:15; Start 10/29/19 at 22:00 Atorvastatin Calcium (Lipitor) 10 mg HS PO Last administered on 10/29/19at 22:04; Start 10/29/19 at 22:00 Furosemide (Lasix) 40 mg DAILY PO Last administered on 10/30/19at 09:15; Start 10/30/19 at 09:00 Isosorbide Mononitrate (Imdur) 60 mg DAILY PO ; Start 10/30/19 at 09:00; Stop 10/29/19 at 21:55; Status DC Cetirizine HCl (ZyrTEC) 10 mg DAILY PO Last administered on 10/30/19at 09:16; Start 10/30/19 at 09:00 Non-Formulary Medication (Suvorexant (Belsomra)) 20 mg HS PO ; Start 10/30/19 at 21:00; Status UNV Non-Formulary Medication (Vortioxetine Hydrobromide (Trintellix)) 20 mg DAILY PO ; Start 10/30/19 at 09:00; Status UNV Isosorbide Mononitrate (Imdur) 60 mg DAILY PO Last administered on 10/30/19at 09:15; Start 10/29/19 at 22:30 Zolpidem Tartrate (Ambien) 5 mg PRN QHS PRN PO INSOMNIA, MAY REPEAT X1 Last administered on 10/29/19at 23:34; Start 10/29/19 at 23:15 Active Scripts Active Reported Spironolactone 25 Mg Tablet 1 Tab PO DAILY Eliquis (Apixaban) 5 Mg Tablet 5 Mg PO BID Isosorbide Mononitrate 20 Mg Tablet 60 Mg PO DAILY Xyzal (Levocetirizine Dihydrochloride) 5 Mg Tablet 5 Mg PO DAILY Proair Hfa (Albuterol Sulfate) 8.5 Gm Hfa.aer.ad 2 Puff INH PRN Q6HRS PRN Xanax (Alprazolam) 0.5 Mg Tablet 0.5 Mg PO TID Lasix (Furosemide) 40 Mg Tablet 40 Mg PO DAILY Trintellix (Vortioxetine) 20 Mg Tablet 20 Mg PO DAILY Eliquis (Apixaban) 5 Mg Tablet 5 Mg PO BID Belsomra (Suvorexant) 20 Mg Tablet 20 Mg PO HS Atorvastatin Calcium 10 Mg Tablet 10 Mg PO HS Vitals/I & O Vital Sign - Last 24 Hours 10/29/19 10/29/19 10/29/19 10/29/19 13:48 14:33 15:24 15:32 Temp 97.8 97.8 Pulse 94 100 78 78 Resp 22 B/P (MAP) 124/80 (95) 110/57 (74) 106/66 104/63 (77) Pulse Ox 97 97 97 O2 Delivery Room Air Room Air Room Air 10/29/19 10/29/19 10/29/19 10/29/19 16:02 20:00 22:04 23:00 Temp 98.0 98.0 Pulse 74 68 79 B/P (MAP) 114/70 (85) 135/79 140/80 (100) Pulse Ox 96 97 O2 Delivery Room Air Room Air Room Air 10/30/19 10/30/19 10/30/19 10/30/19 03:00 04:41 05:11 07:00 Temp 98.2 98.0 98.2 98.0 Pulse 70 84 Resp 22 22 B/P (MAP) 133/70 (91) 112/66 (81) Pulse Ox 97 97 97 97 O2 Delivery Room Air Room Air Room Air Room Air 10/30/19 09:15 Pulse 84 B/P (MAP) 112/66 Intake and Output 10/29/19 10/29/19 10/30/19 15:00 23:00 07:00 Intake Total 0 ml 450 ml Balance 0 ml 450 ml TORITO DAVILA MD Oct 30, 2019 09:58
--- NOTE | 2019-10-30 10:05 | PDOC2 ---
RAVINDER LOUIE DIAMOND MERCHANT 10/30/19 1005: CARDIAC CONSULT DATE OF CONSULT Date of Consult DATE: 10/30/19 TIME: 09:59 REASON FOR CONSULT Reason for Consult: Chest pain REFERRING PHYSICIAN Referring Physician: Angie SOURCE Source: Chart review, Patient HISTORY OF PRESENT ILLNESS HISTORY OF PRESENT ILLNESS This is a pleasant 49 yo female admitted for complains of chest pain. Reports that this started yesterday and was having sharp pain mid chest initially then chest tightness that radiated to jaw and arms. She took NTG SL at home and did not helped and finally decided to come in to ED. She was also having some tingling to her arms and feet and noting that her raynauds is acting up. Also was diagnosed with fibromyalgia 2 months and also thinks that this was flaring. She had some nausea and almost vomiting yesterday with LLQ pain to her abdomen and thinking she is starting to have pancreatitis again. She is significnat for past yr pancreatitis and could have been related to GB sludge and was told that she may need cholecystectomy. She is followed closely by GI and had EGD and colonoscopy in the past with no known acute issues and has had gastric sleeve and denies any PUD nor routine NSAID use. No recent falls or injury. She is on eliquis with LE DVT last yr. She was in [place] 10/2018 and had [facility] and was told no CAD but noted with vasopasm and was started on verapamil. 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 No arrhythmias. She has been in since 10/08/2019 to help care for her friend who has cancer and she is suppose to go back to [place] in a couple of weeks. Presently her discomfort is very reproducible with palpation and deep breathing as well. PAST MEDICAL HISTORY Cardiovascular: HTN, Hyperlipidemia, Other (angina; raynauds) Pulmonary: Asthma CENTRAL NERVOUS SYSTEM: Other (No pertinent history) GI: GERD, Other (liver hemangioma) Heme/Onc: Other (DVT 2018) Hepatobiliary: Other (gallbladder sludge) Psych: Anxiety, Depression Musculoskeletal: Osteoarthritis Rheumatologic: Fibromyalgia Infectious disease: No pertinent hx ENT: No pertinent hx Renal/: No pertinent hx Endocrine: No pertinent hx Dermatology: No pertinent hx PAST SURGICAL HISTORY Past Surgical History: Arthroscopy (left knee meniscus repair), Tubal Ligation, Other (LHC; gastric sleeve) FAMILY HISTORY Family History: Coronary Artery Disease (brother) SOCIAL HISTORY Smoke: No ALCOHOL: none Drugs: Marijuana Lives: with Family (partner) CURRENT MEDICATIONS CURRENT MEDICATIONS Current Medications Medications (Trade) Dose Ordered Sig/Aleta Route PRN Reason Start Time Stop Time Status Last Admin Dose Admin Sodium Chloride 1,000 ml @ 1,000 mls/hr Q1H IV 10/29/19 13:31 10/29/19 14:30 DC 10/29/19 14:32 Fentanyl Citrate (Fentanyl 2ml Vial) 50 mcg 1X ONCE IVP 10/29/19 13:45 10/29/19 13:50 DC 10/29/19 14:31 Nitroglycerin (Nitrostat) 0.4 mg PRN Q5MIN PRN SL CHEST PAIN 10/29/19 15:15 10/29/19 15:24 Fentanyl Citrate (Fentanyl 2ml Vial) 75 mcg 1X ONCE IVP 10/29/19 15:45 10/29/19 15:46 DC 10/29/19 15:45 Ondansetron HCl (Zofran) 4 mg PRN Q8HRS PRN IV NAUSEA/VOMITING 10/29/19 17:15 10/30/19 17:14 10/30/19 04:50 Fentanyl Citrate (Fentanyl 2ml Vial) 50 mcg PRN Q1HR PRN IV PAIN 10/29/19 17:15 10/30/19 17:14 10/30/19 04:41 Alprazolam (Xanax) 0.5 mg TID PO 10/29/19 22:00 10/30/19 09:15 Apixaban (Eliquis) 5 mg BID PO 10/29/19 22:00 10/30/19 09:15 Atorvastatin Calcium (Lipitor) 10 mg HS PO 10/29/19 22:00 10/29/19 22:04 Furosemide (Lasix) 40 mg DAILY PO 10/30/19 09:00 10/30/19 09:15 Cetirizine HCl (ZyrTEC) 10 mg DAILY PO 10/30/19 09:00 10/30/19 09:16 Isosorbide Mononitrate (Imdur) 60 mg DAILY PO 10/29/19 22:30 10/30/19 09:15 Zolpidem Tartrate (Ambien) 5 mg PRN QHS PRN PO INSOMNIA, MAY REPEAT X1 10/29/19 23:15 10/29/19 23:34 ALLERGIES ALLERGIES: Coded Allergies: latex (Verified Allergy, Severe, throat closes, 10/29/19) shellfish derived (Verified Allergy, Severe, THROAT CLOSES, 10/29/19) acetaminophen (Verified Allergy, Intermediate, dizziness, 10/29/19) aspirin (Verified Allergy, Intermediate, hives, 10/29/19) oxycodone (Verified Allergy, Intermediate, dizziness, 10/29/19) ROS Review of System 14 point ROS evaluated with pertinent positives noted per HPI PHYSICAL EXAM General: Alert, Oriented X3, Cooperative, No acute distress HEENT: Atraumatic, Mucous membr. moist/pink Lungs: Clear to auscultation, Normal air movement Heart: Regular rate (SR), Normal S1, Normal S2, No murmurs Abdomen: Soft, No tenderness Extremities: No cyanosis, No edema Skin: No breakdown, No significant lesion Neuro: Normal speech, Sensation intact Psych/Mental Status: Mental status NL, Mood NL MUSCULOSKELETAL: Osteoarthritic changes both hands VITALS/I&O VITALS/I&O: Vital Signs Date Time Temp Pulse Resp B/P (MAP) Pulse Ox O2 Delivery O2 Flow Rate FiO2 10/30/19 09:15 84 112/66 10/30/19 07:00 98.0 22 97 Room Air 98.0 l I & O 10/29/19 10/29/19 10/30/19 15:00 23:00 07:00 Intake Total 0 ml 450 ml Balance 0 ml 450 ml LABS Lab: Laboratory Tests Test 10/29/19 14:15 10/29/19 15:55 10/29/19 16:00 10/29/19 20:00 White Blood Count 5.2 x10^3/uL (4.0-11.0) Red Blood Count 4.75 x10^6/uL (3.50-5.40) Hemoglobin 13.4 g/dL (12.0-15.5) Hematocrit 40.0 % (36.0-47.0) Mean Corpuscular Volume 84 fL (79-100) Mean Corpuscular Hemoglobin 28 pg (25-35) Mean Corpuscular Hemoglobin Concent 34 g/dL (31-37) Red Cell Distribution Width 14.0 % (11.5-14.5) Platelet Count 256 x10^3/uL (140-400) Neutrophils (%) (Auto) 41 % (31-73) Lymphocytes (%) (Auto) 53 % (24-48) H Monocytes (%) (Auto) 5 % (0-9) Eosinophils (%) (Auto) 1 % (0-3) Basophils (%) (Auto) 1 % (0-3) Neutrophils # (Auto) 2.1 x10^3/uL (1.8-7.7) Lymphocytes # (Auto) 2.8 x10^3/uL (1.0-4.8) Monocytes # (Auto) 0.3 x10^3/uL (0.0-1.1) Eosinophils # (Auto) 0.1 x10^3/uL (0.0-0.7) Basophils # (Auto) 0.0 x10^3/uL (0.0-0.2) Prothrombin Time 13.6 SEC (11.7-14.0) Prothrombin Time INR 1.1 (0.8-1.1) Urine Collection Type Unknown Urine Color Yellow Urine Clarity Clear Urine pH 8.5 (<5.0-8.0) Urine Specific Dwight 1.015 (1.000-1.030) Urine Protein 30 mg/dL (NEG-TRACE) Urine Glucose (UA) Negative mg/dL (NEG) Urine Ketones (Stick) Trace mg/dL (NEG) Urine Blood Negative (NEG) Urine Nitrite Negative (NEG) Urine Bilirubin Negative (NEG) Urine Urobilinogen Dipstick 1.0 mg/dL (0.2 mg/dL) Urine Leukocyte Esterase Moderate (NEG) Urine RBC Occ /HPF (0-2) Urine WBC 5-10 /HPF (0-4) Urine Squamous Epithelial Cells Many /LPF Urine Bacteria Many /HPF (0-FEW) Urine Opiates Screen Neg (NEG) Urine Methadone Screen Neg (NEG) Urine Barbiturates Neg (NEG) Urine Phencyclidine Screen Neg (NEG) Urine Amphetamine/Methamphetamine Neg (NEG) Urine Benzodiazepines Screen Pos (NEG) Urine Cocaine Screen Neg (NEG) Urine Cannabinoids Screen Pos (NEG) Urine Ethyl Alcohol Neg (NEG) Sodium Level 141 mmol/L (136-145) Potassium Level 3.4 mmol/L (3.5-5.1) L Chloride Level 102 mmol/L (98-107) Carbon Dioxide Level 28 mmol/L (21-32) Anion Gap 11 (6-14) Blood Urea Nitrogen 13 mg/dL (7-20) Creatinine 1.0 mg/dL (0.6-1.0) Estimated GFR (Cockcroft-Gault) 71.6 BUN/Creatinine Ratio 13 (6-20) Glucose Level 88 mg/dL (70-99) Calcium Level 8.8 mg/dL (8.5-10.1) Total Bilirubin 1.4 mg/dL (0.2-1.0) H Aspartate Amino Transferase (AST) 38 U/L (15-37) H Alanine Aminotransferase (ALT) 87 U/L (14-59) H Alkaline Phosphatase 141 U/L (46-116) H Troponin I Quantitative < 0.017 ng/mL (0.000-0.055) < 0.017 ng/mL (0.000-0.055) PE-Igj-X-Type Natriuretic Peptide 40 pg/mL (0-124) Total Protein 7.2 g/dL (6.4-8.2) Albumin 3.8 g/dL (3.4-5.0) Albumin/Globulin Ratio 1.1 (1.0-1.7) Lipase 81 U/L (73-393) Triglycerides Level 76 mg/dL (0-150) Cholesterol Level 145 mg/dL (0-200) LDL Cholesterol, Calculated 72 mg/dL (0-100) VLDL Cholesterol, Calculated 15 mg/dL (0-40) Non-HDL Cholesterol Calculated 87 mg/dL (0-129) HDL Cholesterol 58 mg/dL (40-60) Cholesterol/HDL Ratio 2.5 Thyroid Stimulating Hormone (TSH) 1.560 uIU/mL (0.358-3.74) Test 10/30/19 02:38 Troponin I Quantitative < 0.017 ng/mL (0.000-0.055) Laboratory Tests 10/29/19 14:15 Laboratory Tests 10/29/19 16:00 ASSESSMENT/PLAN ASSESSMENT/PLAN 1. Chest pain: possible vasopasm with associated raynauds 2. Raynauds flare 3. Fibromyalgia flare: per PCP 4. 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 Hx of DVT: 2019 on eliquis 6. Hx of Gastric sleeve 7. Possible UTI: per PCP 8. Marijuana use: used for her chronic pain 9. HTN: controlled 10. HLP: continue home statin Recommendations 1. Continue imdur and will add low dose norvasc. Discussed avoidance of triggers for raynauds. 2. Lives in [place] and here for friend who has cancer. 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 [facility] 10/2018 in [place] and will obtain records, no CAD but ruled as vasopasm 3. TTE BROOKLYN ARCOS MD 10/30/19 1838: CARDIAC CONSULT ASSESSMENT/PLAN ASSESSMENT/PLAN Pt. seen and examined. Agree with above API PRODUCT MANAGER note. Supportive care. Await OSH records. Continue imdur and amlodipine. RAVINDER LOUIE APRN Oct 30, 2019 10:05 BROOKLYN ARCOS MD Oct 30, 2019 18:38
[2019-10-30] MEDS: amLODIPine BESYLATE 5 MG TABLET PO SCH (10:30)
[2019-10-30 10:53] VITALS: BP 113/64
--- NOTE | 2019-10-30 11:12 | NUR ---
SS following for discharge planning. SS reviewed pt chart and discussed with pt RN. Pt is from home and is currently on room air. Pt visiting from [place]. Pt having cardiac work up. SS will continue to follow for discharge planning.
[2019-10-30] MEDS ORDERED: POTASSIUM CHLORIDE 20 MEQ TABLET.ER. PO ONE (12:15)
[2019-10-30] MEDS: SPIRONOLACTONE 25 MG TABLET PO SCH (12:21)
[2019-10-30] MEDS: MORPHINE SULFATE 2 MG/ML VIAL. IV PRN (12:21)
[2019-10-30] MEDS ORDERED: DOXE10CA PO (14:31)
[2019-10-30 15:00] VITALS: BP 98/54
[2019-10-30 19:29] VITALS: BP 104/57
--- NOTE | 2019-10-30 20:21 | NUR ---
Pt has asked to be COVID tested, this RN spoke with Nursing Jig Boring Machine Operator [employer] about pt request which would require the patient to transfer to [facility] as a PUI, and to ask patient to wait until tomorrow due to bed availability. RN spoke with patient about asking MD in the morning.
[2019-10-30] MEDS ORDERED: NON FORMULARY ITEM PO SCH (21:00)
[2019-10-30] MEDS: ATORVASTATIN CALCIUM 10 MG TABLET. PO SCH (21:54)
[2019-10-30 22:46] VITALS: BP 106/59
[2019-10-31 00:07] LABS: HEMOGLOBIN A1C 5.5 % (4.8-5.6)
[2019-10-31 03:10] VITALS: BP 102/34
[2019-10-31] MEDS: MORPHINE SULFATE 2 MG/ML VIAL. IV PRN ×2 (05:10→08:42)
[2019-10-31 06:35] VITALS: BP 99/60
[2019-10-31] MEDS ORDERED: ONDANSETRON PF 4 MG/2 ML VIAL. IVP PRN (08:15)
[2019-10-31] MEDS ORDERED: ONDANSETRON PF 4 MG/2 ML VIAL. ONE (08:35)
[2019-10-31] MEDS: ALPRAZolam 0.5 MG TABLET PO SCH (08:42)
[2019-10-31] MEDS: ISOSORBIDE MONONITRATE ER 30 MG TAB.ER.24H PO SCH (08:43)
[2019-10-31] MEDS: amLODIPine BESYLATE 5 MG TABLET PO SCH (08:44)
[2019-10-31] MEDS: CETIRIZINE HCL 10 MG TABLET. PO SCH (08:44)
[2019-10-31] MEDS: APIXABAN 5 MG TABLET. PO SCH (08:44)
[2019-10-31] MEDS: FUROSEMIDE 40 MG TABLET. PO SCH (08:44)
[2019-10-31] MEDS: SPIRONOLACTONE 25 MG TABLET PO SCH (08:45)
--- NOTE | 2019-10-31 08:47 | PDOC ---
PROGRESS NOTES Chief Complaint Chief Complaint A/P: Chest Pain rule out ACS Fibromyalgia hx of DVT on oral AC Asthma ? hx of CHF Depression, anxiety History of Present Illness History of Present Illness Ms Koehler is a 49 yo F w/ PMHx ?fibromyalgia, obesity s/p gastric sleeve admitted for complains of chest pain that began the day prior to admission, notes having sharp pain mid chest initially then chest tightness that radiated to jaw and arms. She took NTG SL at home and did not relieve her pain and finally decided to come in to ED. She was also having some tingling to her arms and feet and weakness. Also was diagnosed with fibromyalgia 2 months and also thinks that this was flaring. She had some nausea and almost vomiting day prior to admission with LLQ pain to her abdomen and thinking she is starting to have pancreatitis again, claimed this past yr pancreatitis had and could have been related to GB sludge and was told that she may need cholecystectomy. She is followed closely by GI and had EGD and colonoscopy in the past with no known acute issues and has had gastric sleeve and denies any PUD nor routine NSAID use. No recent falls or injury. She is on eliquis with LE DVT last yr. She was in [place] 10/2018 and had LHC and was told no CAD but noted with vasopasm and was started on verapamil. 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 No arrhythmias. She has been in since 10/08/2019 to help care for her friend who has cancer and she is suppose to go back to [place] in a couple of weeks. Presently her discomfort is very reproducible with palpation and deep breathing as well. Troponin x3 and EKG negative. Pain improved with morphine and tramadol. LHC 10/2018 in [place] and will obtain records, no CAD but ruled as vasopasm. Lives in [place], is visiting , will be leaving in 1 week. Having nausea this morning. Troponins negative, echocardiogram WNL. She goes into quite a bit of detail about moving to [place] recently and panc reatitis and fibromyalgia have been to new recent diagnoses, says she has biliary sludge. She notes for her fibromyalgia she had been taking tramadol and gabapentin. 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 PLAN Discharge home Vitals Vitals Vital Signs Date Time Temp Pulse Resp B/P (MAP) Pulse Ox O2 Delivery O2 Flow Rate FiO2 10/31/19 08:44 71 99/60 10/31/19 06:35 97.6 18 99 Room Air 97.6 Physical Exam Physical Exam Constitutional: Well developed, well nourished, no acute distress, non-toxic appearance. [] HENT: Normocephalic, atraumatic, bilateral external ears normal, oropharynx m oist, no oral exudates, nose normal. [] Eyes: PERRLA, EOMI, conjunctiva normal, no discharge. [] Neck: Normal range of motion, no tenderness, supple, no stridor. [] Cardiovascular:Heart rate regular rhythm, no murmur [] Lungs & Thorax: Bilateral breath sounds clear to auscultation [] Abdomen: Bowel sounds normal, soft, no tenderness, no masses, no pulsatile masses. [] Skin: Warm, dry, no erythema, no rash. [] Back: No tenderness, no CVA tenderness. [] Extremities: No tenderness, no cyanosis, no clubbing, ROM intact, no edema. [] Neurologic: Alert and oriented X 3, normal motor function, normal sensory function, no focal deficits noted. [] Psychologic: Affect normal, judgement normal, mood normal. General: Alert, Oriented X3, Cooperative, No acute distress Heart: Normal S1 Lungs: Clear Abdomen: Normal bowel sounds, Soft, No hepatosplenomegaly Extremities: No cyanosis, No edema Skin: No significant lesion Assessment and Plan Assessmemt and Plan Problems Medical Problems: (1) Chest pain Status: Acute Comment Review of Relevant I have reviewed the following items shantelle (where applicable) has been applied. Labs Laboratory Tests Test 10/29/19 14:15 10/29/19 15:55 10/29/19 16:00 10/29/19 20:00 White Blood Count 5.2 x10^3/uL (4.0-11.0) Red Blood Count 4.75 x10^6/uL (3.50-5.40) Hemoglobin 13.4 g/dL (12.0-15.5) Hematocrit 40.0 % (36.0-47.0) Mean Corpuscular Volume 84 fL (79-100) Mean Corpuscular Hemoglobin 28 pg (25-35) Mean Corpuscular Hemoglobin Concent 34 g/dL (31-37) Red Cell Distribution Width 14.0 % (11.5-14.5) Platelet Count 256 x10^3/uL (140-400) Neutrophils (%) (Auto) 41 % (31-73) Lymphocytes (%) (Auto) 53 % (24-48) Monocytes (%) (Auto) 5 % (0-9) Eosinophils (%) (Auto) 1 % (0-3) Basophils (%) (Auto) 1 % (0-3) Neutrophils # (Auto) 2.1 x10^3/uL (1.8-7.7) Lymphocytes # (Auto) 2.8 x10^3/uL (1.0-4.8) Monocytes # (Auto) 0.3 x10^3/uL (0.0-1.1) Eosinophils # (Auto) 0.1 x10^3/uL (0.0-0.7) Basophils # (Auto) 0.0 x10^3/uL (0.0-0.2) Prothrombin Time 13.6 SEC (11.7-14.0) Prothromb Time International Ratio 1.1 (0.8-1.1) Urine Collection Type Unknown Urine Color Yellow Urine Clarity Clear Urine pH 8.5 (<5.0-8.0) Urine Specific Stickney 1.015 (1.000-1.030) Urine Protein 30 mg/dL (NEG-TRACE) Urine Glucose (UA) Negative mg/dL (NEG) Urine Ketones (Stick) Trace mg/dL (NEG) Urine Blood Negative (NEG) Urine Nitrite Negative (NEG) Urine Bilirubin Negative (NEG) Urine Urobilinogen Dipstick 1.0 mg/dL (0.2 mg/dL) Urine Leukocyte Esterase Moderate (NEG) Urine RBC Occ /HPF (0-2) Urine WBC 5-10 /HPF (0-4) Urine Squamous Epithelial Cells Many /LPF Urine Bacteria Many /HPF (0-FEW) Urine Opiates Screen Neg (NEG) Urine Methadone Screen Neg (NEG) Urine Barbiturates Neg (NEG) Urine Phencyclidine Screen Neg (NEG) Urine Amphetamine/Methamphetamine Neg (NEG) Urine Benzodiazepines Screen Pos (NEG) Urine Cocaine Screen Neg (NEG) Urine Cannabinoids Screen Pos (NEG) Urine Ethyl Alcohol Neg (NEG) Sodium Level 141 mmol/L (136-145) Potassium Level 3.4 mmol/L (3.5-5.1) Chloride Level 102 mmol/L (98-107) Carbon Dioxide Level 28 mmol/L (21-32) Anion Gap 11 (6-14) Blood Urea Nitrogen 13 mg/dL (7-20) Creatinine 1.0 mg/dL (0.6-1.0) Estimated GFR (Cockcroft-Gault) 71.6 BUN/Creatinine Ratio 13 (6-20) Glucose Level 88 mg/dL (70-99) Hemoglobin A1c 5.5 % (4.8-5.6) Calcium Level 8.8 mg/dL (8.5-10.1) Total Bilirubin 1.4 mg/dL (0.2-1.0) Aspartate Amino Transf (AST/SGOT) 38 U/L (15-37) Alanine Aminotransferase (ALT/SGPT) 87 U/L (14-59) Alkaline Phosphatase 141 U/L (46-116) Troponin I Quantitative < 0.017 ng/mL (0.000-0.055) < 0.017 ng/mL (0.000-0.055) FO-Uwh-M-Type Natriuretic Peptide 40 pg/mL (0-124) Total Protein 7.2 g/dL (6.4-8.2) Albumin 3.8 g/dL (3.4-5.0) Albumin/Globulin Ratio 1.1 (1.0-1.7) Lipase 81 U/L (73-393) Triglycerides Level 76 mg/dL (0-150) Cholesterol Level 145 mg/dL (0-200) LDL Cholesterol, Calculated 72 mg/dL (0-100) VLDL Cholesterol, Calculated 15 mg/dL (0-40) Non-HDL Cholesterol Calculated 87 mg/dL (0-129) HDL Cholesterol 58 mg/dL (40-60) Cholesterol/HDL Ratio 2.5 Thyroid Stimulating Hormone (TSH) 1.560 uIU/mL (0.358-3.74) Test 10/30/19 02:38 Troponin I Quantitative < 0.017 ng/mL (0.000-0.055) Medications Current Medications Sodium Chloride 1,000 ml @ 1,000 mls/hr Q1H IV Last administered on 10/29/19at 14:32; Start 10/29/19 at 13:31; Stop 10/29/19 at 14:30; Status DC Fentanyl Citrate (Fentanyl 2ml Vial) 50 mcg 1X ONCE IVP Last administered on 10/29/19at 14:31; Start 10/29/19 at 13:45; Stop 10/29/19 at 13:50; Status DC Nitroglycerin (Nitrostat) 0.4 mg PRN Q5MIN PRN SL CHEST PAIN Last administered on 10/29/19at 15:24; Start 10/29/19 at 15:15 Fentanyl Citrate (Fentanyl 2ml Vial) 75 mcg 1X ONCE IVP Last administered on 10/29/19at 15:45; Start 10/29/19 at 15:45; Stop 10/29/19 at 15:46; Status DC Ondansetron HCl (Zofran) 4 mg PRN Q8HRS PRN IV NAUSEA/VOMITING Last administered on 10/30/19at 04:50; Start 10/29/19 at 17:15; Stop 10/30/19 at 17:14; Status DC Fentanyl Citrate (Fentanyl 2ml Vial) 50 mcg PRN Q1HR PRN IV PAIN Last administered on 10/30/19at 04:41; Start 10/29/19 at 17:15; Stop 10/30/19 at 17:14; Status DC Alprazolam (Xanax) 0.5 mg TID PO Last administered on 10/31/19at 08:42; Start 10/29/19 at 22:00 Apixaban (Eliquis) 5 mg BID PO Last administered on 10/31/19at 08:44; Start 10/29/19 at 22:00 Atorvastatin Calcium (Lipitor) 10 mg HS PO Last administered on 10/30/19at 21:54; Start 10/29/19 at 22:00 Furosemide (Lasix) 40 mg DAILY PO Last administered on 10/31/19at 08:44; Start 10/30/19 at 09:00 Isosorbide Mononitrate (Imdur) 60 mg DAILY PO ; Start 10/30/19 at 09:00; Stop 10/29/19 at 21:55; Status DC Cetirizine HCl (ZyrTEC) 10 mg DAILY PO Last administered on 10/31/19 08:44; Start 10/30/19 at 09:00 Non-Formulary Medication (Suvorexant (Belsomra)) 20 mg HS PO Last administered on 10/30/19 21:55; Start 10/30/19 at 21:00 Non-Formulary Medication (Vortioxetine Hydrobromide (Trintellix)) 20 mg DAILY PO Last administered on 10/31/19 08:43; Start 10/30/19 at 15:30 Isosorbide Mononitrate (Imdur) 60 mg DAILY PO Last administered on 10/31/19 08:43; Start 10/29/19 at 22:30 Zolpidem Tartrate (Ambien) 5 mg PRN QHS PRN PO INSOMNIA, MAY REPEAT X1 Last administered on 10/29/19at 23:34; Start 10/29/19 at 23:15 Amlodipine Besylate (Norvasc) 2.5 mg DAILY PO Last administered on 10/31/19 08:44; Start 10/30/19 at 10:15 Morphine Sulfate (Morphine Sulfate) 2 mg PRN Q3HRS PRN IV PAIN Last administered on 10/31/19 08:42; Start 10/30/19 at 12:15 Spironolactone (Aldactone) 25 mg DAILY PO Last administered on 10/31/19 08:45; Start 10/30/19 at 13:00 Potassium Chloride (Klor-Con) 20 meq 1X ONCE PO Last administered on 10/30/19 12:21; Start 10/30/19 at 12:15; Stop 10/30/19 at 12:16; Status DC Non-Formulary Medication 1 ea QHS PO Last administered on 10/30/19 21:55; Start 10/30/19 at 21:00 Ondansetron HCl (Zofran) 4 mg PRN Q6HRS PRN IVP NAUSEA/VOMITING Last administered on 10/31/19 08:42; Start 10/31/19 at 08:15 Ondansetron HCl (Zofran) 4 mg STK-MED ONCE .ROUTE ; Start 10/31/19 at 08:35; Stop 10/31/19 at 08:35; Status DC Active Scripts Active Reported Doxepin Hcl 10 Mg Capsule 6 Mg PO QHS Spironolactone 25 Mg Tablet 1 Tab PO DAILY Eliquis (Apixaban) 5 Mg Tablet 5 Mg PO BID Isosorbide Mononitrate 20 Mg Tablet 60 Mg PO DAILY Xyzal (Levocetirizine Dihydrochloride) 5 Mg Tablet 5 Mg PO DAILY Proair Hfa (Albuterol Sulfate) 8.5 Gm Hfa.aer.ad 2 Puff INH PRN Q6HRS PRN Xanax (Alprazolam) 0.5 Mg Tablet 0.5 Mg PO TID Lasix (Furosemide) 40 Mg Tablet 40 Mg PO DAILY Trintellix (Vortioxetine) 20 Mg Tablet 20 Mg PO DAILY Eliquis (Apixaban) 5 Mg Tablet 5 Mg PO BID Belsomra (Suvorexant) 20 Mg Tablet 20 Mg PO HS Atorvastatin Calcium 10 Mg Tablet 10 Mg PO HS Vitals/I & O Vital Sign - Last 24 Hours 10/30/19 10/30/19 10/30/19 10/30/19 09:15 10:30 10:53 15:00 Temp 98.2 98.0 98.2 98.0 Pulse 84 84 82 86 Resp 22 22 B/P (MAP) 112/66 112/66 113/64 (80) 98/54 (69) Pulse Ox 98 95 O2 Delivery Room Air Room Air 10/30/19 10/30/19 10/30/19 10/31/19 19:29 20:00 22:46 03:10 Temp 97.8 97.7 97.6 97.8 97.7 97.6 Pulse 90 73 42 Resp 18 18 18 B/P (MAP) 104/57 (73) 106/59 (75) 102/34 (56) Pulse Ox 96 98 99 O2 Delivery Room Air Room Air Room Air Room Air 10/31/19 10/31/19 10/31/19 10/31/19 05:10 05:42 06:35 08:43 Temp 97.6 97.6 Pulse 71 71 Resp 20 18 18 B/P (MAP) 99/60 (73) 99/60 Pulse Ox 99 99 99 O2 Delivery Room Air Room Air Room Air 10/31/19 08:44 Pulse 71 B/P (MAP) 99/60 Intake and Output 10/30/19 10/30/19 10/31/19 15:00 23:00 07:00 Intake Total 300 ml 200 ml 740 ml Balance 300 ml 200 ml 740 ml WAYNE CROSS MD Oct 31, 2019 08:47
[2019-10-31 11:04] VITALS: BP 106/54
--- NOTE | 2019-10-31 11:05 | NUR ---
SS following up with discharge planning. SS reviewed pt chart and discussed with pt RN. Pt is currently on room air. Pt had ECHO today. Possible discharge to home today. SS will continue to follow for discharge planning.
--- NOTE | 2019-10-31 11:26 | CARD ---
MR#: [id number] Date of Study: 10/31/2019 Ordering Physician: RAVINDER LOUIE, Referring Physician: RAVINDER LOUIE, Tech: Brunilda Weston [facility] APPROVED REPORT EXAM: Two-dimensional and M-mode echocardiogram with Doppler and color Doppler. Other Information Quality : Good INDICATION Chest Pain 2D DIMENSIONS RVDd1.8 (2.9-3.5cm)Left Atrium(2D)3.4 (1.6-4.0cm) IVSd0.9 (0.7-1.1cm)Aortic Root(2D)2.8 (2.0-3.7cm) LVDd4.2 (3.9-5.9cm)LVOT Diameter1.9 (1.8-2.4cm) PWd0.7 (0.7-1.1cm)LVDs3.0 (2.5-4.0cm) FS (%) 29.0 %SV44.3 ml LVEF(%)56.1 (>50%) Aortic Valve AoV Peak Kervin.115.3cm/sAoV VTI24.1cm AO Peak GR.5.3mmHgLVOT Peak Kervin.113.4cm/s AO Mean GR.3mmHgAVA (VMAX)2.76cm2 SHALONDA (VTI)2.90cm2 Mitral Valve MV E Sjmqrhbj73.3cm/sMV DECEL [id number] MV A Djwmhone87.7cm/sE/A Ratio1.0 Tricuspid Valve TR P. Ckrzapnf319xz/sRAP VESUKOXE1srOg TR Peak Gr.54lzEfTRAJ49hcNw Pulmonary Vein S1 Rosfwpjf06.6cm/sD2 Iljhwmsi71.7cm/s LEFT VENTRICLE The left ventricle is normal size. There is normal left ventricular wall thickness. The left ventricu lar systolic function is normal and the ejection fraction is within normal range. The Ejection Fracti on is 55-60%. There is normal LV segmental wall motion. The left ventricular diastolic function and f illing is normal for age. RIGHT VENTRICLE The right ventricle is normal size. The right ventricular systolic function is normal. ATRIA The left atrium size is normal. The right atrium size is normal. The interatrial septum is intact wit h no evidence for an atrial septal defect or patent foramen ovale as noted on 2-D or Doppler imaging. AORTIC VALVE The aortic valve is normal in structure and function. Doppler and Color Flow revealed no significant aortic regurgitation. There is no significant aortic valvular stenosis. MITRAL VALVE The mitral valve is calcified but opens well. There is no evidence of mitral valve prolapse. There is no mitral valve stenosis. Doppler and Color-flow revealed mild mitral regurgitation. TRICUSPID VALVE The tricuspid valve is normal in structure and function. Doppler and Color Flow revealed trace tricus pid regurgitation. The PA pressure was estimated at 28 mmHg. There is no tricuspid valve stenosis. PULMONIC VALVE The pulmonary valve is normal in structure and function. Doppler and Color Flow revealed mild pulmoni c valvular regurgitation. There is no pulmonic valvular stenosis. GREAT VESSELS The aortic root is normal in size. The ascending aorta is not well seen. The IVC is normal in size an d collapses >50% with inspiration. PERICARDIAL EFFUSION There is no evidence of significant pericardial effusion. Critical Notification Critical Value: No <Conclusion> The left ventricle is normal size. The left ventricular systolic function is normal and the ejection fraction is within normal range. The Ejection Fraction is 55-60%. Doppler and Color Flow revealed no significant aortic regurgitation. There is no significant aortic valvular stenosis. Doppler and Color-flow revealed mild mitral regurgitation. Doppler and Color Flow revealed trace tricuspid regurgitation. The PA pressure was estimated at 28 mmHg. Signed by : Rafa Jose MD Electronically Approved : 10/31/2019 11:26:01
[2019-10-31] MEDS ORDERED: ALPRAZolam 0.5 MG TABLET PO PRN (11:45)
[2019-10-31] MEDS ORDERED: traMADol 50 MG TABLET PO PRN (11:45)
[2019-10-31] MEDS ORDERED: LIDOCAINE (700MG/PATCH) PATCH. TD SCH (11:45)
--- NOTE | 2019-10-31 12:25 | PDOC ---
CARDIO Progress Notes Date and Time Date of Service 10/31/2019 Time of Evaluation 0830 Subjective Subjective: No shortness of breath, No Palpitations, Other (sharp chest pain otherwise better) Vitals Vitals Vital Signs Date Time Temp Pulse Resp B/P (MAP) Pulse Ox O2 Delivery O2 Flow Rate FiO2 10/31/19 11:04 98.4 92 18 106/54 (71) 98 Room Air 98.4 Weight Weight [ ] Input and Output Intake and Output Intake and Output 10/31/19 07:00 Intake Total 1240 ml Balance 1240 ml Intake Oral 1240 ml Microbiology Micro Microbiology 10/29/19 Urine Culture - Preliminary, Resulted Physical Exam HEENT: Neck Supple W Full Motion Chest: Symmetric LUNGS: Clear to Auscultation Heart: S1S2, RRR (SR withoout ectopies) Abdomen: Soft N/T Extremities: No Edema, No Calf Tenderness Neurology: alert, oriented, follow commands Assessment Assessment 1. Chest pain: possible vasopasm with associated raynauds. EF and WM nml, no arrhythmias. 2. Raynauds flare: stable 3. Fibromyalgia flare: per PCP 4. 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 Hx of DVT: 2019 on eliquis 6. Hx of Gastric sleeve 7. Possible UTI: per PCP 8. Marijuana use: used for her chronic pain 9. HTN: Bp at low end. due to associated use of aldactone and lasix. 10. HLP: continue home statin. lipids on goal Recommendations 1. Continue imdur/norvasc. Discussed avoidance of triggers for raynauds. Stop aldactone and change lasix to PRN for leg swelling. 2. Lives in [place] and here for friend who has cancer. Has service order expediter over there. [facility] 10/[place] in [place] and will try to obtain records, no CAD but ruled as vasopasm. No records yet. Follow up with her [place] service order expediter upon return at the end of the month 3. May DC per cardiac standpoint. Justicifation of Admission Dx: Justifications for Admission: Justification of Admission Dx: Yes RAVINDER LOUIE ETCHER APPRENTICE Oct 31, 2019 12:25
[2019-10-31] MEDS ORDERED: FUROSEMIDE 40 MG TABLET. PO PRN (12:30)
[2019-10-31] MEDS ORDERED: TRAM50TA PO (13:12)
--- NOTE | 2019-10-31 13:22 | PDOC3 ---
Discharge Summary Visit Information Date of Admission: Oct 29, 2019 Date of Discharge: Oct 31, 2019 Admitting Diagnosis: Chest pain Final Diagnosis Problems Medical Problems: (1) Chest pain Status: Acute Brief Hospital Course Allergies Allergies Coded Allergies Type Severity Reaction Last Updated Verified latex Allergy Severe throat closes 10/29/19 Yes shellfish derived Allergy Severe THROAT CLOSES 10/29/19 Yes acetaminophen Allergy Intermediate dizziness 10/29/19 Yes aspirin Allergy Intermediate hives 10/29/19 Yes oxycodone Allergy Intermediate dizziness 10/29/19 Yes Vital Signs Vital Signs Date Time Temp Pulse Resp B/P (MAP) Pulse Ox O2 Delivery O2 Flow Rate FiO2 10/31/19 11:04 98.4 92 18 106/54 (71) 98 Room Air 98.4 Lab Results Laboratory Tests Test 10/29/19 14:15 10/29/19 15:55 10/29/19 16:00 10/29/19 20:00 White Blood Count 5.2 x10^3/uL (4.0-11.0) Red Blood Count 4.75 x10^6/uL (3.50-5.40) Hemoglobin 13.4 g/dL (12.0-15.5) Hematocrit 40.0 % (36.0-47.0) Mean Corpuscular Volume 84 fL (79-100) Mean Corpuscular Hemoglobin 28 pg (25-35) Mean Corpuscular Hemoglobin Concent 34 g/dL (31-37) Red Cell Distribution Width 14.0 % (11.5-14.5) Platelet Count 256 x10^3/uL (140-400) Neutrophils (%) (Auto) 41 % (31-73) Lymphocytes (%) (Auto) 53 % (24-48) Monocytes (%) (Auto) 5 % (0-9) Eosinophils (%) (Auto) 1 % (0-3) Basophils (%) (Auto) 1 % (0-3) Neutrophils # (Auto) 2.1 x10^3/uL (1.8-7.7) Lymphocytes # (Auto) 2.8 x10^3/uL (1.0-4.8) Monocytes # (Auto) 0.3 x10^3/uL (0.0-1.1) Eosinophils # (Auto) 0.1 x10^3/uL (0.0-0.7) Basophils # (Auto) 0.0 x10^3/uL (0.0-0.2) Prothrombin Time 13.6 SEC (11.7-14.0) Prothromb Time International Ratio 1.1 (0.8-1.1) Urine Collection Type Unknown Urine Color Yellow Urine Clarity Clear Urine pH 8.5 (<5.0-8.0) Urine Specific [place] 1.015 (1.000-1.030) Urine Protein 30 mg/dL (NEG-TRACE) Urine Glucose (UA) Negative mg/dL (NEG) Urine Ketones (Stick) Trace mg/dL (NEG) Urine Blood Negative (NEG) Urine Nitrite Negative (NEG) Urine Bilirubin Negative (NEG) Urine Urobilinogen Dipstick 1.0 mg/dL (0.2 mg/dL) Urine Leukocyte Esterase Moderate (NEG) Urine RBC Occ /HPF (0-2) Urine WBC 5-10 /HPF (0-4) Urine Squamous Epithelial Cells Many /LPF Urine Bacteria Many /HPF (0-FEW) Urine Opiates Screen Neg (NEG) Urine Methadone Screen Neg (NEG) Urine Barbiturates Neg (NEG) Urine Phencyclidine Screen Neg (NEG) Urine Amphetamine/Methamphetamine Neg (NEG) Urine Benzodiazepines Screen Pos (NEG) Urine Cocaine Screen Neg (NEG) Urine Cannabinoids Screen Pos (NEG) Urine Ethyl Alcohol Neg (NEG) Sodium Level 141 mmol/L (136-145) Potassium Level 3.4 mmol/L (3.5-5.1) Chloride Level 102 mmol/L (98-107) Carbon Dioxide Level 28 mmol/L (21-32) Anion Gap 11 (6-14) Blood Urea Nitrogen 13 mg/dL (7-20) Creatinine 1.0 mg/dL (0.6-1.0) Estimated GFR (Cockcroft-Gault) 71.6 BUN/Creatinine Ratio 13 (6-20) Glucose Level 88 mg/dL (70-99) Hemoglobin A1c 5.5 % (4.8-5.6) Calcium Level 8.8 mg/dL (8.5-10.1) Total Bilirubin 1.4 mg/dL (0.2-1.0) Aspartate Amino Transf (AST/SGOT) 38 U/L (15-37) Alanine Aminotransferase (ALT/SGPT) 87 U/L (14-59) Alkaline Phosphatase 141 U/L (46-116) Troponin I Quantitative < 0.017 ng/mL (0.000-0.055) < 0.017 ng/mL (0.000-0.055) BZ-Sac-I-Type Natriuretic Peptide 40 pg/mL (0-124) Total Protein 7.2 g/dL (6.4-8.2) Albumin 3.8 g/dL (3.4-5.0) Albumin/Globulin Ratio 1.1 (1.0-1.7) Lipase 81 U/L (73-393) Triglycerides Level 76 mg/dL (0-150) Cholesterol Level 145 mg/dL (0-200) LDL Cholesterol, Calculated 72 mg/dL (0-100) VLDL Cholesterol, Calculated 15 mg/dL (0-40) Non-HDL Cholesterol Calculated 87 mg/dL (0-129) HDL Cholesterol 58 mg/dL (40-60) Cholesterol/HDL Ratio 2.5 Thyroid Stimulating Hormone (TSH) 1.560 uIU/mL (0.358-3.74) Test 10/30/19 02:38 Troponin I Quantitative < 0.017 ng/mL (0.000-0.055) Brief Hospital Course Ms Koehler is a 49 yo F w/ PMHx ?fibromyalgia, obesity s/p gastric sleeve admitted for complains of chest pain that began the day prior to admission, notes having sharp pain mid chest initially then chest tightness that radiated to jaw and arms. She took NTG SL at home and did not relieve her pain and finally decided to come in to ED. She was also having some tingling to her arms and feet and weakness. Also was diagnosed with fibromyalgia 2 months and also thinks that this was flaring. She had some nausea and almost vomiting day prior to admission with LLQ pain to her abdomen and thinking she is starting to have pancreatitis again, claimed this past yr pancreatitis had and could have been related to GB sludge and was told that she may need cholecystectomy. She is followed closely by GI and had EGD and colonoscopy in the past with no known acute issues and has had gastric sleeve and denies any PUD nor routine NSAID use. No recent falls or injury. She is on eliquis with LE DVT last yr. She was in [place] 10/2018 and had LHC and was told no CAD but noted with vasopasm and was started on verapamil. 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 No arrhythmias. She has been in since 10/08/2019 to help care for her friend who has cancer and she is suppose to go back to [place] in a couple of weeks. Presently her discomfort is very reproducible with palpation and deep breathing as well. Troponin x3 and EKG negative. Pain improved with morphine and tramadol. [facility] 10/2018 in [place] and will obtain records, no CAD but ruled as vasopasm. Lives in [place], is visiting , will be leaving in 1 week. Having nausea this morning. Troponins negative, echocardiogram WNL. She goes into quite a bit of detail about moving to [place] recently and pancreatitis and fibromyalgia have been to new recent diagnoses, says she has biliary sludge. She notes for her fibromyalgia she had been taking tramadol and gabapentin. 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 She does feel improved, cleared by cardiology. Has outpatient f/u in [place] soon and is leaving town in 1 week. Consults: Cardiology Problem list: Chest Pain rule out ACS Fibromyalgia hx of DVT on oral AC Asthma ? hx of CHF Depression, anxiety PLAN Discharge home with 1 week of tramadol for fibromyalgia, she does not wish for gabapentin given her h/o swelling Discharge Information Condition at Discharge: Improved Follow Up: Weeks Disposition/Orders: D/C to Home Scheduled Alprazolam (Xanax) 0.5 Mg Tablet, 0.5 MG PO TID, Ref 0 (Reported) Entered as Reported by: DAMARI GRANT RN on 10/29/192015 Last Action: Continued on 10/29/192102 by AMBER FERNÁNDEZ MD Apixaban (Eliquis) 5 Mg Tablet, 5 MG PO BID, (Reported) Entered as Reported by: DAMARI GRANT RN on 10/29/192015 Last Action: Continued on 10/29/192102 by AMBER FERNÁNDEZ MD Atorvastatin Calcium (Atorvastatin Calcium) 10 Mg Tablet, 10 MG PO HS for FOR CHOLESTEROL, #30 Ref 0 (Reported) Entered as Reported by: DAMARI GRANT RN on 10/29/192011 Last Action: Continued on 10/29/192102 by AMBER FERNÁNDEZ MD Doxepin Hcl (Doxepin Hcl) 10 Mg Capsule, 6 MG PO QHS for dep/anx, (Reported) Entered as Reported by: SHANEKA LAWRENCE on 10/30/19 143 Last Taken: Unknown Dose on 10/28/19 Last Action: Continued on 10/30/191432 by SHANEKA LAWRENCE Isosorbide Mononitrate (Isosorbide Mononitrate) 20 Mg Tablet, 60 MG PO DAILY, (Reported) Entered as Reported by: DAMARI GRANT RN on 10/29/192015 Last Action: Continued on 10/29/192102 by AMBER FERNÁNDEZ MD Levocetirizine Dihydrochloride (Xyzal) 5 Mg Tablet, 5 MG PO DAILY, (Reported) Entered as Reported by: DAMARI GRANT RN on 10/29/192015 Last Action: Converted on 10/29/192102 by AMBER FERNÁNDEZ MD Suvorexant (Belsomra) 20 Mg Tablet, 20 MG PO HS, (Reported) Entered as Reported by: DAMARI GRANT RN on 10/29/192011 Last Action: Converted on 10/29/192102 by AMBER FERNÁNDEZ MD Vortioxetine Hydrobromide (Trintellix) 20 Mg Tablet, 20 MG PO DAILY, (Reported) Entered as Reported by: DAMARI GRANT RN on 10/29/192015 Last Action: Converted on 10/29/192102 by AMBER FERNÁNDEZ MD Scheduled PRN Albuterol Sulfate (Proair Hfa) 8.5 Gm Hfa.aer.ad, 2 PUFF INH PRN Q6HRS PRN for SHORTNESS OF BREATH, (Reported) Entered as Reported by: DAMARI GRANT RN on 10/29/192015 Last Action: New Order on 10/29/192015 by DAMARI GRANT RN Tramadol Hcl (Tramadol Hcl) 50 Mg Tablet, 50 MG PO PRN Q6HRS PRN for PAIN for 6 Days, #18 Prescribed by: WAYNE CROSS MD on 10/31/19 1313 Discontinued Medications Apixaban (Eliquis) 5 Mg Tablet, 5 MG PO BID, (Reported) Entered as Reported by: Shelia Grove on 10/29/192205 Last Action: New Order on 10/29/192205 by Shelia Grove Atorvastatin Calcium (Atorvastatin Calcium) 10 Mg Tablet, 1 TAB PO DAILY, #30 Ref 5 (Reported) Discontinued Reason: duplicate Entered as Reported by: Shelia Grove on 10/29/192204 Last Action: Discontinued on 10/29/192206 by Shelia Grove Furosemide (Lasix) 40 Mg Tablet, 40 MG PO DAILY, (Reported) Entered as Reported by: DAMARI GRANT RN on 10/29/192015 Last Action: Continued on 10/29/192102 by AMBER FERNÁNDEZ MD Spironolactone (Spironolactone) 25 Mg Tablet, 1 TAB PO DAILY for chf, #90 Ref 1 (Reported) Entered as Reported by: SHANEKA LAWRENCE on 10/30/19921 Last Taken: Unknown Dose on 10/28/19 Last Action: Continued on 10/30/19 1214 by SHANEKA LAWRENCE Suvorexant (Belsomra) 20 Mg Tablet, 20 MG PO DAILY, (Reported) Discontinued Reason: duplicate Entered as Reported by: Shelia Grove on 10/29/192204 Last Action: Discontinued on 10/29/192206 by Shelia Grove Vortioxetine Hydrobromide (Trintellix) 20 Mg Tablet, 20 MG PO DAILY, (Reported) Discontinued Reason: duplicate Entered as Reported by: Shelia Grove on 10/29/192205 Last Action: Discontinued on 10/29/192206 by Shelia Grove Justicifation of Admission Dx: Justifications for Admission: Justification of Admission Dx: Yes WAYNE CROSS MD Oct 31, 2019 13:22
--- NOTE | 2019-10-31 14:43 | NUR ---
Discharge Note: MARIBELL STEARNS [address] [place] [address] Discharge instructions and discharge home medications reviewed with Patient and a copy given. All questions have been answered and understanding verbalized. The following instructions and handouts were given: CP Discontinued IV line Patient discharged to home with self care via wheelchair
[2019-10-31] MEDS ORDERED: PATCH REMOVAL. MC SCH (21:00)
[2019-11-02] MEDS ORDERED: AMOX500C PO (07:08)
== END 2019-10-31 15:34 | disposition home or self-care (01) | DRG 206 ==
LOC: ER 13:19 → 2 NORTH 17:04
PROVIDERS: ADMIT Internal Medicine; ATTEND Internal Medicine
DX: M94.0 Chondrocostal junction syndrome [Tietze] (principal); I50.22 Chronic systolic (congestive) heart failure; K21.9 Gastro-esophageal reflux disease without esophagitis; I73.00 Raynaud's syndrome without gangrene; E78.00 Pure hypercholesterolemia, unspecified; E78.5 Hyperlipidemia, unspecified; F12.90 Cannabis use, unspecified, uncomplicated; F32.9 Major depressive disorder, single episode, unspecified; F43.10 Post-traumatic stress disorder, unspecified; G89.29 Other chronic pain; I11.0 Hypertensive heart disease with heart failure; J45.909 Unspecified asthma, uncomplicated; M79.7 Fibromyalgia; Z79.01 Long term (current) use of anticoagulants; Z82.49 Family history of ischemic heart disease and other diseases of the circulatory system; Z86.718 Personal history of other venous thrombosis and embolism; Z88.6 Allergy status to analgesic agent; Z98.84 Bariatric surgery status; M19.90 Unspecified osteoarthritis, unspecified site; Z88.8 Allergy status to other drugs, medicaments and biological substances; Z91.040 Latex allergy status
CPT/HCPCS: 36415; 71045; 80053; 80061; 80307; 81001; 83036; 83690; 83880; 84443; 84484; 85025; 85610; 87086; 93306; 96361; 96374; 96375; J2270; J2405; J3010; J7030; 99285-25; G0378